=== PATIENT | male | born 1990 | race Caucasian/White ===

== ENCOUNTER 2022-01-18 16:06 | Emergency (ER) | payer BC ==
[~2022-01-18] VITALS: Ht 180.3 cm; Wt 90.9 kg
[2022-01-18 16:16] VITALS: TEMP 98.1
[2022-01-18] MEDS ORDERED: CEPHALEXIN500 M1 PO (17:29)
[2022-01-18 17:38] VITALS: BP 118/68; PULSE 63
== END 2022-01-18 17:40 | disposition home or self-care (01) ==
LOC: COL.ER 16:06
DX: S81.812A Laceration without foreign body, left lower leg, initial encounter (principal); Z23 Encounter for immunization; W22.8XXA Striking against or struck by other objects, initial encounter; Y92.481 Parking lot as the place of occurrence of the external cause

== ENCOUNTER → 2022-02-02 | Outpatient (CLI) | payer BC ==
[~2022-02-02] MED LIST: CEPHALEXIN500 M1 PO
[2022-02-02 15:19] VITALS: BP 138/83; PULSE 72; TEMP 98.8
== END ==
LOC: COL.ER 15:08
DX: Z48.02 Encounter for removal of sutures (principal); Z28.310 Unvaccinated for COVID-19

== ENCOUNTER → 2022-05-22 | Outpatient (CLI) | payer BC, OTHER | LOC: COL.RAD 12:33 | DX: N50.811 Right testicular pain (principal) ==

== ENCOUNTER 2023-02-17 05:17 | Day surgery (SDC) | payer OTHER ==
[~2023-02-17] VITALS: Ht 177.8 cm; Wt 97.7 kg
[2023-02-17] MEDS ORDERED: MOBIC15 MG PO (05:53)
[2023-02-17] MEDS ORDERED: PRINZIDE 12.5 M1 TAB PO (05:53)
[2023-02-17] MEDS ORDERED: EFFEXOR XR37.5 MG/CA PO (05:54)
[2023-02-17] MEDS ORDERED: LIPITOR 40MG TA40 MG PO (05:54)
[2023-02-17] MEDS ORDERED: NEURONTIN300 MG/CAP PO (05:54)
[2023-02-17] MEDS ORDERED: XANAX 0.5MG0.5 MG PO (05:55)
[2023-02-17 06:24] VITALS: BP 140/90; PULSE 59; TEMP 98.1
[2023-02-17 07:55] VITALS: BP 129/50; PULSE 59; TEMP 97.8
[2023-02-17] MEDS ORDERED: CEPHALEXIN500 M1 PO (08:02)
[2023-02-17] MEDS ORDERED: ULTRAM 50MG TAB50 MG PO (08:02)
[2023-02-17 08:10] VITALS: BP 132/81; PULSE 61
[2023-02-17 08:25] VITALS: BP 139/89; PULSE 51
--- NOTE | 2023-02-17 09:00 | NUR ---
0755-PT TO [place] 7 PER CART FROM OR. REPORT RECEIVED. VS OBTAINED. CALL LIGHT WITHIN REACH. PT DENIES ANY DISCOMFORT AT THIS TIME. WILL CONTINUE TO MONITOR. 0805-PT TOLERATING WATER. DENIES ANY FOOD AT THIS TIME. 0830-IV DC'D AT THIS TIME. PT UP TO RESTROOM AND VOIDED WITHOUT DIFFICULTY. PT AMBULATED WITH STAND BY ASSIST. 0835-DISCHARGE EDUCATION COMPLETED WITH PT. VERBALIZED UNDERSTANDING OF HOME AND FOLLOW UP CARE. ALL QUESTIONS ANSWERED. DISCHARGE PAPERWORK GIVEN TO PT. 0900-PT OFF UNIT PER WHEELCHAIR. PT DISCHARGED TO HOME WITH [facility] PER PERSONAL VEHICLE.
== END 2023-02-17 09:00 | disposition home or self-care (01) ==
LOC: SDCO 05:17
DX: G56.01 Carpal tunnel syndrome, right upper limb (principal); K21.9 Gastro-esophageal reflux disease without esophagitis; Z28.310 Unvaccinated for COVID-19; Z87.891 Personal history of nicotine dependence; Z79.899 Other long term (current) drug therapy
CPT/HCPCS: J0690; J2704; J7120